=== PATIENT | male | born 1970 | race Caucasian/White ===

== ENCOUNTER 2024-11-27 09:48 | Emergency (ER) | payer BC, SELFPAY ==
[2024-11-27 10:00] VITALS: BP 184/110; PULSE 100; TEMP 36.7; O2SAT 98; BMI 36.3
[2024-11-27 10:29] LABS: Hematocrit 44.6 % (42.0-54.0); Hemoglobin 15.5 g/dL (14.0-18.0); Immature Granulocytes Abs Auto 0.03 10^3/uL (0.00-0.03); Immature Granulocytes Pct Auto 0.4 % (0.0-0.5); Lymphocytes Absolute Auto 2.0 10^3/uL (1.2-3.8); Mean Corpuscular HGB Conc 34.8 g/dL (29.9-35.2); Mean Corpuscular Hemoglobin 30.0 pg (25.9-34.0); Mean Corpuscular Volume 86.3 fL (80.0-94.0); Platelet Count 225 10^3/uL (150-450); Red Blood Count 5.17 10^6/uL (4.70-6.10); White Blood Count 7.9 10^3/uL (4.0-11.0)
[2024-11-27 10:47] LABS: Alanine Aminotransferase 44 U/L (16-63); Albumin Globulin Ratio 1.0; Albumin Level 3.6 g/dL (3.4-5.0); Alkaline Phosphatase 106 U/L (46-116); Anion Gap 12.6; Aspartate Amino Transferase 25 U/L (15-37); Blood Urea Nitrogen 18.0 mg/dL (7.0-18.0); Calcium 8.9 mg/dL (8.5-10.1); Carbon Dioxide 29.6 mmol/L (21.0-32.0); Chloride 104 mmol/L (98-107); Estimated GFR (African America >60 (>=60 mL/min/1.73m^2); Estimated GFR (Non-African Ame >60 (>=60 mL/min/1.73m^2); Globulin 3.5 g/dL; Glucose 220 mg/dL (74-106); Potassium 4.2 mmol/L (3.5-5.1); Sodium 142 mmol/L (136-145); Total Protein 7.1 g/dL (6.4-8.2)
[2024-11-27 11:03] LABS: INR 1.03; Partial Thromboplastin Time 29.9 sec (22.3-36.2); Prothrombin Time 10.9 sec (9.0-11.6)
[2024-11-27] MEDS: OXYMETAZOLINE HCL 0.05% NASAL SPRAY 2 SPRAY NS (11:56)
--- NOTE | 2024-11-27 14:12 | ED.EPISTAXI1 ---
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 and he notices for the last few days in certain position after sneezing the patient was started bleeding Patient does not have any active bleeding at the moment Related Data Home Medications ?Medication ?Instructions ?Recorded ?Confirmed paroxetine HCl 20 mg tablet 10 mg PO DAILY 11/27/24 11/27/24 Previous Rx's ?Medication ?Instructions ?Recorded oxymetazoline 0.05 % nasal mist 2 spray intranasal ONCE PRN nasal 11/27/24 (Afrin (oxymetazoline)) bleeding 3 days #15 mL Allergies Allergy/AdvReac Type Severity Reaction Status Date / Time No Known Drug Allergies Allergy Verified 11/27/24 10:09 Review of Systems ROS Status of ROS 10 or more systems reviewed and unremarkable except as noted in history and below [facility] Medical History (Updated 11/27/24 @ 11:40 by Tania Maya MD) Epistaxis ?R04.0 - Epistaxis (ICD-10) Social History Little interest or pleasure in doing things: not at all Feeling down, depressed, or hopeless: not at all Exam Narrative Exam Narrative: Nurses notes and vital signs reviewed and patient is not hypoxic. General: Well-appearing and in no apparent distress. Skin: Warm, dry, no pallor noted. No rash. Head: Normocephalic, atraumatic. Neck: Supple, non-tender. Eye: Pupils are equal, round and EOMI. No scleral icterus. Ears, Nose, Mouth, and Throat: The patient have a blood clot in the posterior aspect of the right nostril and there is no active bleeding noted in the posterior aspect of the pharynx. Respiratory: No accessory muscle use or respiratory distress. Lungs are clear to auscultation, no wheezing, rales or rhonchi Chest Wall: no tenderness Constitutional Vital Signs, click to edit/add: Last Vital Signs Temp 98.1 F 11/27/24 10:00 Pulse 100 H 11/27/24 10:00 Resp 18 11/27/24 10:00 BP 184/110 H 11/27/24 10:00 Pulse Ox 98 11/27/24 10:00 O2 Del Method Room Air 11/27/24 10:00 Course Vital Signs Vital signs: Vital Signs Temperature 98.1 F 11/27/24 10:00 Pulse Rate 100 H 11/27/24 10:00 Respiratory Rate 18 11/27/24 10:00 Blood Pressure 184/110 H 11/27/24 10:00 Pulse Oximetry 98 11/27/24 10:00 Oxygen Delivery Method Room Air 11/27/24 10:00 Temperature 98.1 F 11/27/24 10:00 Pulse Rate 100 H 11/27/24 10:00 Respiratory Rate 18 11/27/24 10:00 Blood Pressure 184/110 H 11/27/24 10:00 Pulse Oximetry 98 11/27/24 10:00 Oxygen Delivery Method Room Air 11/27/24 10:00 MDM - Epistaxis MDM Narrative Medical decision making narrative: The patient CBC and chemistry showed no acute significant pathology His blood pressure was noted to be elevated which he mentioned that he does not have any history of high blood pressure he just was angry because his ENT doctor did not agree to see him right away and he thinks that is the reason for his blood pressure to be elevated I did explain to the patient that elevated blood pressure sometimes can cause epistaxis and he is to follow-up with his primary care doctor within few days for further evaluation of his blood pressure The patient also provided Afrin nasal spray to help use in case the bleeding happens again and apply pressure after that The patient to come back to the ER in case of any epistaxis The patient was monitored in the ER for more than an hour during which he did not have any bleeding The patient is to follow up with primary care physician in next 2-3 days or to return to the emergency department should any of the signs or symptoms worsen or new symptoms develop. The patient agrees with the following Diagnosis and Treatment plan and the patient will be discharged home. Lab Data Labs: Lab Results 11/27/24 Range/Units 10:20 WBC 7.9 (4.0-11.0) 10^3/uL RBC 5.17 (4.70-6.10) 10^6/uL Hgb 15.5 (14.0-18.0) g/dL Hct 44.6 (42.0-54.0) % MCV 86.3 (80.0-94.0) fL MCH 30.0 (25.9-34.0) pg MCHC 34.8 (29.9-35.2) g/dL RDW 12.7 (11.0-15.0) % Plt Count 225 (150-450) 10^3/uL MPV 10.7 (9.5-13.5) fL Neut % (Auto) 65.4 (43.0-75.0) % Lymph % (Auto) 24.6 (20.5-60.0) % [place] % (Auto) 6.7 (1.7-12.0) % Eos % (Auto) 2.4 (0.9-7.0) % Baso % (Auto) 0.5 (0.2-2.0) % Neut # (Auto) 5.2 (1.4-6.5) 10^3/uL Lymph # (Auto) 2.0 (1.2-3.8) 10^3/uL [place] # (Auto) 0.5 (0.3-0.8) 10^3/uL Eos # (Auto) 0.2 (0.0-0.7) 10^3/uL Baso # (Auto) 0.0 (0.0-0.1) 10^3/uL Abs Immat Gran (auto) 0.03 (0.00-0.03) 10^3/uL Imm/Tot Granulo (auto) 0.4 (0.0-0.5) % PT 10.9 (9.0-11.6) sec INR 1.03 APTT 29.9 (22.3-36.2) sec Sodium 142 (136-145) mmol/L Potassium 4.2 (3.5-5.1) mmol/L Chloride 104 (98-107) mmol/L Carbon Dioxide 29.6 (21.0-32.0) mmol/L Anion Gap 12.6 BUN 18.0 (7.0-18.0) mg/dL Creatinine 1.01 (0.70-1.30) mg/dL Est GFR ( Amer) >60 (>=60 mL/min/1.73m^2) Est GFR (Non-Af Amer) >60 (>=60 mL/min/1.73m^2) BUN/Creatinine Ratio 17.8 Glucose 220 H (74-106) mg/dL Calcium 8.9 (8.5-10.1) mg/dL Total Bilirubin 0.4 (0.2-1.0) mg/dL AST 25 (15-37) U/L ALT 44 (16-63) U/L Alkaline Phosphatase 106 (46-116) U/L Total Protein 7.1 (6.4-8.2) g/dL Albumin 3.6 (3.4-5.0) g/dL Globulin 3.5 g/dL Albumin/Globulin Ratio 1.0 Discharge Plan Discharge Chief Complaint: Epistaxis Clinical Impression: Epistaxis, Elevated blood pressure reading Patient Disposition: Home, Self-Care Time of Disposition Decision: 11:37 Condition: Good Mode of Transportation: Private Vehicle Prescriptions / Home Meds: New Afrin (oxymetazoline) 0.05 % mist 2 spray intranasal ONCE PRN (Reason: nasal bleeding ) 3 Days Qty: 15 0RF No Action paroxetine HCl 20 mg tablet 10 mg PO DAILY Print Language: Scottish Instructions: Nosebleed (ED), Low-Sodium Diet (ED), Hypertension (ED) Referrals: MILES GORMAN [Primary Care Provider, Family Practice] - 1 week Discharge Date/Time: 11/27/24 11:57
== END 2024-11-27 11:57 | disposition home or self-care (01) ==
PROVIDERS: Emergency Provider Emergency Medicine; PCP Family Medicine
DX: R04.0 Epistaxis (principal); R03.0 Elevated blood-pressure reading, without diagnosis of hypertension
CPT/HCPCS: 36415; 80053; 85025; 85610; 85730; 99285